=== PATIENT | female | born 1990 | race Caucasian/White ===

== ENCOUNTER 2017-10-04 13:49 | Emergency (ER) | payer SELFPAY ==
[~2017-10-04] VITALS: Ht 175.3 cm; Wt 95.3 kg
[2017-10-04 13:57] VITALS: BP_SYST 159
--- NOTE | 2017-10-04 14:04 | NUR ---
Patient to ER bed 8 to gown for evaluation. Side rails up. Report received from ANTHONY Florez.
--- NOTE | 2017-10-04 14:07 | NUR ---
Pt complains of dark red/brown discoloration when wiping since last night. Per patient, she took "an at home test September 02 and is positive." Pt reports she has not been able to see an OBGYN just yet because she is getting her insurance situated. Patient reports the discoloration happens sporadically. Pt states she has "sharp pain on the lower part of abdomen, randomly." No other injuries/complaints per patient or noted.
[2017-10-04 14:54] LABS: BILIRUBIN,URINE NEGATIVE (NEGATIVE); BLOOD, URINE 2+ (NEGATIVE); CLARITY/URINE CLEAR (CLEAR); COLOR,URINE YELLOW (YELLOW); GLUCOSE,URINE NEGATIVE (NEGATIVE); KETONES,URINE NEGATIVE (NEGATIVE); LEUKOCYTE ESTERASE ,URINE NEGATIVE (NEGATIVE); NITRITE, URINE NEGATIVE (NEGATIVE); PROTEIN URINE NEGATIVE (NEGATIVE)
[2017-10-04 14:55] LABS: UROBILINOGEN,URINE 0.2 (0.2-1.0)
[2017-10-04 14:57] LABS: BACTERIA,URINE None Seen /HPF (None Seen); RBC,URINE 0-3 /HPF (0-3); WBC,URINE 0-3 /HPF (0-3)
--- NOTE | 2017-10-04 15:00 | NUR ---
Pt went to ultrasound in stable condition.
--- NOTE | 2017-10-04 15:16 | NUR ---
Pt returned from radiology in stable condition.
[2017-10-04 15:23] LABS: BASOPHILS % (AUTO) 0.7 % (0.0-2.0); EOSINOPHILS # (AUTO) 0.2 K/uL (0.0-0.4); EOSINOPHILS % (AUTO) 3.6 % (0.0-4.0); HEMATOCRIT 40.2 % (36-48); HEMOGLOBIN 13.4 g/dL (12.0-16.0); LYMPHOCYTES % (AUTO) 30.3 % (20.5-51.5); MEAN CORPUSCULAR HEMOGLOBIN 29 pg (27-31); MEAN CORPUSCULAR HGB CONC 33 % (32-36); MEAN CORPUSCULAR VOLUME 85 fL (79.0-98.0); MONOCYTES # (AUTO) 0.3 K/uL (0.0-1.0); MONOCYTES % (AUTO) 4.2 % (1.7-9.3); NEUTROPHILS # (AUTO) 3.9 K/uL (1.8-7.7); NEUTROPHILS % (AUTO) 61.2 % (40.0-70.0); PLATELET COUNT (AUTO) 274 K/uL (130-430); RED BLOOD CELL COUNT(AUTO) 4.72 MIL/uL (4.2-6.2); RED CELL DISTRIBUTION WIDTH 12.1 % (9.0-15.0); WHITE BLOOD COUNT (AUTO) 6.4 K/uL (4.8-10.8)
[2017-10-04 16:07] VITALS: BP_SYST 131
--- NOTE | 2017-10-04 16:07 | NUR ---
Patient given written and verbal discharge instructions and verbalizes understanding. ER MD discussed with patient the results and treatment provided. Patient in stable condition. ID arm band removed. No Rx given. Patient educated on pain management and to follow up with PMD. Pain Scale 0. Opportunity for questions provided and answered.
== END 2017-10-04 16:07 | disposition home or self-care (01) ==
LOC: SED 13:49
DX: N93.9 Abnormal uterine and vaginal bleeding, unspecified (principal); R11.2 Nausea with vomiting, unspecified; Z88.6 Allergy status to analgesic agent
CPT/HCPCS: 36415; 76830-TC; 76857; 81000-TC; 84702-TC; 85025; 86900; 86901; 99285

== ENCOUNTER 2018-05-11 08:55 | Emergency (ER) | payer MEDICAID ==
[~2018-05-11] VITALS: Ht 175.3 cm; Wt 95.3 kg
[2018-05-11 09:12] VITALS: BP_SYST 160
--- NOTE | 2018-05-11 09:54 | NUR ---
Patient to ER bed 2 to gown for evaluation. Side rails up. Report given to Fam CRUZ.
--- NOTE | 2018-05-11 10:15 | NUR ---
Pt presents to ER c/o headache 10/10 on pain scale; pt reports sudden onset of symptoms and reports that headache is primrarily on L side of head. Pt reports photophobia, no nuchal rigidity present. Pt also reports nausea but denies vomiting. Pt in no acute respiratory distresss, speaking full sentences, AOX4, ambulatory.
[2018-05-11] MEDS ORDERED: DIPHENHYDRAMINE INJ 50 MG/ML VIAL IM ONE (11:00)
[2018-05-11] MEDS ORDERED: PROCHLORPERAZINE EDISYLATE 10 MG/2 ML VIAL IM ONE (11:00)
--- NOTE | 2018-05-11 11:31 | NUR ---
Pt medicated as ordered by ER Dr. Maddox; pt tolerated well; will continue to monitor.
--- NOTE | 2018-05-11 11:32 | NUR ---
Patient transported to radiology via wheelchair, accompanied by rad staff.
--- NOTE | 2018-05-11 12:49 | NUR ---
Patient eloped. Dr. Maddox made aware of situation. Pt did not have an IV in place.
== END 2018-05-11 12:49 | disposition left against medical advice (07) ==
LOC: SED 08:55
DX: G43.909 Migraine, unspecified, not intractable, without status migrainosus (principal); J45.909 Unspecified asthma, uncomplicated; F31.9 Bipolar disorder, unspecified; R03.0 Elevated blood-pressure reading, without diagnosis of hypertension; Z88.6 Allergy status to analgesic agent; Z53.20 Procedure and treatment not carried out because of patient's decision for unspecified reasons
CPT/HCPCS: 70450; 81025; 96372; 99284; J0780; J1200